=== PATIENT | female | born 1990 | race Caucasian/White ===

== ENCOUNTER 2024-02-26 09:21 | Emergency (ER) | payer BC ==
[~2024-02-26] VITALS: Ht 157.5 cm; Wt 76.0 kg
[2024-02-26] MEDS ORDERED: NO HOME MEDS (10:07)
[2024-02-26 10:16] LABS: BASOPHILS % (AUTO) 0.2 % (0-1); EOSINOPHILS % (AUTO) 0.1 % (0-6); HEMATOCRIT 37.3 % (35.0-45.0); HEMOGLOBIN 12.3 g/dl (12.0-16.0); LYMPHOCYTES # (AUTO) 0.8 X10'3 (1.1-4.8); LYMPHOCYTES % (AUTO) 6.4 % (21-51); MEAN CORPUSCULAR HEMOGLOBIN 30.6 PG (27.0-31.0); MEAN CORPUSCULAR HGB CONC 33.1 g/dL (33.0-36.5); MEAN CORPUSCULAR VOLUME 92.5 FL (78-98); MEAN PLATELET VOLUME 9.9 FL (7.4-10.4); MONOCYTES # (AUTO) 0.7 X10'3 (0-0.9); MONOCYTES % (AUTO) 5.8 % (2-12); NEUTROPHILS # (AUTO) 10.6 X10'3 (1.8-7.7); NEUTROPHILS % (AUTO) 87.5 % (42-75); PLATELET COUNT 172 X10'3 (140-440); RED BLOOD COUNT 4.03 X10'6 (4.20-5.60); RED CELL DISTRIBUTION WIDTH 13.4 % (11.5-14.5); WHITE BLOOD COUNT 12.1 X10'3 (4.5-11.0)
[2024-02-26 10:33] LABS: ALBUMIN 3.8 G/DL (3.4-5.0); ANION GAP 9 (8-16); BLOOD UREA NITROGEN 9 MG/DL (7-18); BUN/CREATININE RATIO 10.1 (10.0-20.0); CALCIUM 8.4 MG/DL (8.5-10.1); CHLORIDE 105 MMOL/L (99-107); CREATININE 0.89 MG/DL (0.40-0.90); GLUCOSE 114 MG/DL (70-104); POTASSIUM 3.5 MMOL/L (3.5-5.1); PRO BRAIN NATRIURETIC PEPTIDE 79 PG/ML (0-125); SODIUM 139 MMOL/L (135-145); TOTAL CARBON DIOXIDE 25.2 MMOL/L (24-32); eCRCL 72 ML/MIN; eGFR 74 ML/MIN
[2024-02-26] MEDS: normal saline 1000ml 1,000 ML IV ONE (11:31)
[2024-02-26] MEDS: acetaminophen 325mg tablet PO ONE (11:31)
[2024-02-26 11:40] LABS: BILIRUBIN,URINE NEGATIVE (Neg); CLARITY,URINE SLIGHTLY CLOUDY (Clear); COLOR,URINE YELLOW (Yellow); GLUCOSE, URINE NEGATIVE (Neg); KETONES,URINE 15 mg/dl (Neg); LEUKOCYTE ESTERASE ,URINE NEGATIVE (Neg); NITRITES, URINE NEGATIVE (Neg); OCCULT BLOOD,URINE SMALL (Neg); PH,URINE 6.5 (4.8-8.0); PROTEIN,URINE NEGATIVE (Neg)
[2024-02-26 11:45] LABS: UA COLLECTION TYPE CLN CATCH MIDSTREAM
[2024-02-26 11:46] LABS: FINE GRANULAR CAST 0-3 /LPF (NEGATIVE); MUCUS STRANDS MANY /LPF (Neg); SQUAMOUS EPITHELIAL CELL,UR MANY /LPF (FEW)
[2024-02-26 11:47] LABS: RBC,URINE 20-50 /HPF (0-2); WBC,URINE 0-4 /HPF (0-4)
[2024-02-26 11:48] LABS: BACTERIA,URINE 2+ /HPF (Neg)
[2024-02-26 12:24] LABS: STREP A SCREEN POSITIVE (Neg)
[2024-02-26] MEDS: CefTRIAXone/D5W-Rocephin 1gm 50 ML IV ONE (12:35)
[2024-02-26] MEDS ORDERED: AMOX500C2 PO (12:46)
[2024-02-26 13:16] VITALS: BP 107/65; PULSE 95; RESP 16; TEMP 99.4; O2SAT 98
== END 2024-02-26 13:18 | disposition home or self-care (01) ==
LOC: EDBD 09:22 → ER 09:22
DX: R55 Syncope and collapse (principal); Z20.822 Contact with and (suspected) exposure to COVID-19; J02.9 Acute pharyngitis, unspecified
CPT/HCPCS: 36415; 71045; 80048; 81001; 83605; 83880; 84145; 84484; 85025; 87040; 87811; 87880; 93005; 96361; 96365; 99285; J0696; J7030